=== PATIENT | female | born 1990 | race Hispanic/Latino ===

== ENCOUNTER 2023-11-22 10:42 | Emergency (ER) | payer OTHER, SELFPAY | END 2023-11-22 11:51 | disposition home or self-care (01) | LOC: ERS 10:42 | DX: O9A.212 Injury, poisoning and certain other consequences of external causes complicating pregnancy, second trimester (principal); S39.012A Strain of muscle, fascia and tendon of lower back, initial encounter; O24.912 Unspecified diabetes mellitus in pregnancy, second trimester; Z3A.21 21 weeks gestation of pregnancy | CPT/HCPCS: 76815 ==